=== PATIENT | female | born 1990 | race Caucasian/White ===

== ENCOUNTER 2019-04-21 12:05 | Inpatient (IN) | payer OTHER ==
[~2019-04-21] VITALS: Ht 152.4 cm; Wt 62.6 kg
[2019-04-21 12:34] VITALS: BP 100/62
[2019-04-21] MEDS ORDERED: PREN1TAB80 PO (12:34)
[2019-04-21] MEDS ORDERED: OXYTOCIN 30 UNITS/LACT RINGERS 500 ML IV PRN (13:21)
[2019-04-21] MEDS ORDERED: OXYTOCIN 30 UNITS/LACT RINGERS 500 ML IV ONE (13:21)
[2019-04-21] MEDS ORDERED: RINGERS SOLUTION,LACTATED 1,000 ML IV SCH (13:21)
[2019-04-21] MEDS ORDERED: LIDOCAINE/PF 1% 30 ML VIAL INJ PRN (13:30)
[2019-04-21] MEDS ORDERED: METOCLOPRAMIDE HCL 5 MG/ML 2 ML VIAL IVP PRN (13:30)
[2019-04-21] MEDS ORDERED: FentaNYL CITRATE-PF 100 MCG/2 ML VIAL IVP PRN (13:30)
[2019-04-21] MEDS ORDERED: CITRIC ACID/SODIUM CITRATE 30 ML SOLUTION UDCUP PO PRN (13:30)
[2019-04-21 13:56] LABS: BASOPHILS % (AUTO) 0.4 % (0.0-2.0); EOSINOPHILS % (AUTO) 1.4 % (1.0-6.0); HEMATOCRIT 40.1 % (36-46); HEMOGLOBIN 13.6 g/dL (12.0-16.0); LYMPHOCYTES # (AUTO) 1.7 K/uL (1.0-4.8); LYMPHOCYTES % (AUTO) 21.8 % (22.0-44.0); MEAN CORPUSCULAR HGB CONC 33.8 G/dL (31.0-37.0); MEAN CORPUSCULAR VOLUME 94 fL (80-100); MONOCYTES # (AUTO) 0.4 K/uL (0.1-1.0); MONOCYTES % (AUTO) 4.6 % (2.0-9.0); NEUTROPHILS # (AUTO) 5.6 K/uL (1.8-7.7); NEUTROPHILS % (AUTO) 71.8 % (40.0-70.0); PLATELET COUNT (AUTO)-OB 183 K/uL (150-450); RED BLOOD CELL COUNT(AUTO) 4.25 MIL/uL (4.00-5.20); RED CELL DISTRIBUTION WIDTH 14.8 % (11.5-14.5)
[2019-04-21] MEDS: RINGERS SOLUTION,LACTATED 1,000 ML IV PRN ×2 (14:16→19:41)
[2019-04-21] MEDS: OXYGEN THERAPY IH SCH (20:00)
[2019-04-21] MEDS ORDERED: ROPIVACAINE HCL/PF 0.2% 100 ML ED ONE (20:16)
[2019-04-21] MEDS ORDERED: LIDOCAINE/PF 2% 5 ML VIAL ONE (20:16)
[2019-04-21] MEDS ORDERED: NALBUPHINE HCL 10 MG/ML VIAL IVP PRN (20:45)
[2019-04-21] MEDS ORDERED: ONDANSETRON HCL 4 MG/2 ML VIAL IVP PRN (20:45)
[2019-04-21] MEDS ORDERED: DiphenhydrAMINE HCL 50 MG/ML VIAL IVP PRN (20:45)
[2019-04-21] MEDS ORDERED: ROPIVACAINE HCL/PF 0.2% 100 ML ED PRN (20:45)
[2019-04-22] MEDS ORDERED: ACETAMINOPHEN/CODEINE 300-30 MG TABLET PO PRN ×2 (03:15)
[2019-04-22] MEDS ORDERED: LANOLIN 7 GM OINTMENT TP PRN (03:15)
[2019-04-22] MEDS ORDERED: BENZOCAINE 20%/MENTHOL 56 GM SPRAY CANISTER TP PRN (03:15)
[2019-04-22] MEDS ORDERED: GLYCERIN/WITCH HAZEL LEAF 40 PADS JAR TP PRN (03:15)
[2019-04-22] MEDS ORDERED: RINGERS SOLUTION,LACTATED 1,000 ML IV ONE (04:53)
[2019-04-22] MEDS: IBUPROFEN 800 MG TABLET PO SCH ×4 (04:55→21:11)
[2019-04-22] MEDS ORDERED: OXYTOCIN 30 UNITS/LACT RINGERS 500 ML IV ONE (07:20)
[2019-04-22] MEDS ORDERED: METHYLERGONOVINE MALEATE 0.2 MG/ML VIAL IM PRN (07:30)
[2019-04-22] MEDS: OXYGEN THERAPY IH SCH ×2 (08:00→20:00)
[2019-04-22] MEDS: MAGNESIUM HYDROXIDE SUSPENSION 30 ML UDCUP PO SCH (21:11)
[2019-04-23] MEDS: IBUPROFEN 800 MG TABLET PO SCH ×2 (03:18→09:12)
[2019-04-23] MEDS: MAGNESIUM HYDROXIDE SUSPENSION 30 ML UDCUP PO SCH (09:12)
[2019-04-23] MEDS ORDERED: IBUP-2071 PO (12:54)
== END 2019-04-23 13:50 | disposition home or self-care (01) | DRG 807 ==
LOC: 4S 12:05 → OBSVTOIN 12:05
PROVIDERS: ADMIT Obstetrics & Gynecology; ATTEND Obstetrics & Gynecology
PROC: 10E0XZZ Delivery of Products of Conception, External Approach (ICD-10-PCS; principal; 2019-04-22)
PROC: 3E0R3BZ Introduction of Anesthetic Agent into Spinal Canal, Percutaneous Approach (ICD-10-PCS; 2019-04-22)
PROC: 00HU33Z Insertion of Infusion Device into Spinal Canal, Percutaneous Approach (ICD-10-PCS; 2019-04-22)
DX: O80 Encounter for full-term uncomplicated delivery (principal); Z37.0 Single live birth; Z3A.38 38 weeks gestation of pregnancy
CPT/HCPCS: 86850; 86900; 86901; J2590; J2795; J3490; J7120